=== PATIENT | female | born 1980 | race Caucasian/White ===

== ENCOUNTER 2016-11-04 21:23 | Emergency (ER) | payer SELFPAY ==
[2016-11-04 21:33] VITALS: BP 92/58; PULSE 76; RESP 15; TEMP 98; O2SAT 99
[2016-11-04] MEDS ORDERED: Bacitracin 500 Units/gm Oint Foilpak UD ONE (22:04)
[2016-11-04] MEDS ORDERED: Bacitracin 500 Units/gm Oint Foilpak UD TOP ONE (22:20)
--- NOTE | 2016-11-04 22:29 | C.PDOC ---
History Of Present Illness 36 year old female presents to the ED with complaints of an avulsion to her left thumb after slicing finger with vegetable slicer. Patient denies any weakness, numbness, or any other complaints at this time. Time Seen by Provider: 11/04/16 21:44 Chief Complaint (Nursing): Abnormal Skin Integrity History Per: Patient History/Exam Limitations: no limitations Onset/Duration Of Symptoms: Hrs Past Medical History Reviewed: Historical Data, Nursing Documentation, Vital Signs Vital Signs: Last Vital Signs Temp 98 F 11/04/16 21:29 Pulse 76 11/04/16 21:29 Resp 15 11/04/16 21:29 BP 92/58 L 11/04/16 21:29 Pulse Ox 99 11/05/16 02:17 - Medical History PMH: Hypothyroidism Family History: States: Unknown Family Hx - Social History Hx Tobacco Use: No Hx Alcohol Use: No Hx Substance Use: No - Immunization History Hx Tetanus Toxoid Vaccination: No Review Of Systems Musculoskeletal: Positive for: Other (avulsion to left thumb ) Neurological: Negative for: Weakness, Numbness Physical Exam - Physical Exam Appears: Non-toxic, No Acute Distress Skin: Warm, Dry Head: Normacephalic Eye(s): bilateral: PERRL, EOMI Extremity: Normal ROM, No Tenderness, Capillary Refill (good ), No Deformity, No Swelling, Other (superficial skin avulsion to lateral distal aspect of left thumb. No acute bleeding to left thumb, no nail bed injury) Pulses: Left Radial: Normal, Right Radial: Normal Neurological/Psych: Oriented x3 ED Course And Treatment O2 Sat by Pulse Oximetry: 99 Pulse Ox Interpretation: Normal Progress Note: Wound was cleaned by RN with saline and bacitracin with non adherent dressing was applied. Pt will follow up in clinic. Wound care instructions were given Reassessment Condition: Unchanged Disposition Counseled Patient/Family Regarding: Diagnosis, Need For Followup, Rx Given - Disposition Disposition: HOME/ ROUTINE Disposition Time: 22:25 Condition: GOOD Additional Instructions: Please follow up with PMD Keep wound dry and clean / May wash with gentle soap and water Apply neosporin oint Return to ER if worse Instructions: Skin Avulsion (ED) - Clinical Impression Clinical Impression: Avulsion of skin of finger - Scribe Statement The provider has reviewed the documentation as recorded by the Scribe Lizabeth Watts All medical record entries made by the Scribe were at my direction and personally dictated by me. I have reviewed the chart and agree that the record accurately reflects my personal performance of the history, physical exam, medical decision making, and the department course for this patient. I have also personally directed, reviewed, and agree with the discharge instructions and disposition.
== END 2016-11-04 22:45 | disposition home or self-care (01) ==
LOC: C.ER 21:23
DX: S61.002A Unspecified open wound of left thumb without damage to nail, initial encounter (principal); W45.8XXA Other foreign body or object entering through skin, initial encounter; Y93.G1 Activity, food preparation and clean up